=== PATIENT | male | born 1980 | race Hispanic/Latino ===

== ENCOUNTER 2020-11-26 21:45 | Emergency (ER) | payer SELFPAY ==
--- OUTSIDE RECORDS SUMMARY | 2020-11-26 21:47 | XMS REPORT | Continuity of Care Document ---
:1980 Author Organization [facility] t Address [address] [place] [address] Care Team Providers Name Role Phone Angelina BUCIO, S Attending Clinician Problems This patient has no known problems. Allergies, Adverse Reactions, Alerts This patient has no known allergies or adverse reactions. Medications This patient has no known medications. Procedures This patient has no known procedures. Encounters Start End Encounter Admission Attending Care Care Encounter Source Date/Time Date/Time Type Type Clinicians Facility Department ID 2020-11-21 2020-11-22 Emergency [facility] [id number] 21:16:00 00:46:00 Leydi Soliman [id number] [place] [id number] [place] [id number] Results This patient has no known results.
[2020-11-26 23:11] LABS: Urine Blood Trace-intact (Negative); Urine Glucose Negative (Negative); Urine Protein Negative (Negative); Urine Specific Gravity 1.025 (1.005-1.030)
[2020-11-26 23:16] LABS: Absolute Lymphocytes (CBC) 4.5 K/uL (0.7-4.9); Basophils % 0.7 % (0-1.3); Hematocrit 43.8 % (39.6-49.0); Lymphocytes % 44.6 % (15.3-44.8); MPV 10.5 fL (7.6-11.3); Protime INR 1.02; RBC Red Blood Cell Count 4.82 M/uL (4.33-5.43)
[2020-11-26] MEDS ORDERED: DIPHENHYDRAMINE 50 MG/ML VIAL ONE (23:20)
[2020-11-26] MEDS ORDERED: NA CHLORIDE 0.9% 1,000 ML ONE (23:20)
[2020-11-26] MEDS ORDERED: METOCLOPRAMIDE 10 MG/2mL INJ ONE (23:20)
[2020-11-26 23:40] LABS: ALT/SGPT 56 U/L (12-78); AST/SGOT 27 U/L (15-37); Alkaline Phosphatase 66 U/L (45-117); BUN Blood Urea Nitrogen 16 mg/dL (7-18); Bicarbonate 26 mmol/L (21-32); Bilirubin Direct < 0.1 mg/dL (0-0.2); Bilirubin Total 0.3 mg/dL (0.2-1.0); Glucose Level 96 mg/dL (74-106); Magnesium 2.1 mg/dL (1.8-2.4); NT PRO-BNP 20 pg/mL (<125); Phosphorus 3.3 mg/dL (2.5-4.9); Potassium 3.6 mmol/L (3.5-5.1); Protein, Total 7.4 g/dL (6.4-8.2); Sodium Level 141 mmol/L (136-145); Troponin (Emerg Dept Use Only) < 0.02 ng/mL (0.0-0.045)
[2020-11-26 23:46] LABS: Barbiturates POSITIVE (NEGATIVE); Benzodiazepines NEGATIVE (NEGATIVE); Cocaine NEGATIVE (NEGATIVE); METHAMPHETAM NEGATIVE (NEGATIVE); Methadone NEGATIVE (NEGATIVE); Opiates NEGATIVE (NEGATIVE); Phencyclidine NEGATIVE (NEGATIVE); THC Cannibis NEGATIVE (NEGATIVE)
--- NOTE | 2020-11-27 02:10 | EDPHYS ---
Physician Documentation [facility] Name: Scott Anthony Age: 40 yrs Sex: Male : 1980 Arrival Date: 11/26/2020 Time: 21:49 Bed 15 Private MD: ED Physician Bentley Parry HPI: 11/27 00:04 This 40 yrs old Male presents to ER via Ambulatory with complaints of mh7 Headache, Dizziness, Numbness Of Face. 00:04 The patient complains of pain to the right side of head. The patient describes the mh7 headache as intermittent, throbbing, waxing and waning. Onset: The symptoms/episode began/occurred 3 week(s) ago. Associated signs and symptoms: Pertinent positives: dizziness, nausea, paresthesias, sinus congestion, Pertinent negatives: altered mental status, fever, malaise, neck stiffness, Photophobia rash, sinus tenderness, vision changes, vision loss, vomiting, weakness, vertigo. Severity of symptoms: At its worst the pain was moderate, 10 day(s) ago, in the emergency department the pain has improved, moderately. Headache History: The patient has had previous headaches and this one is similar to previous episodes. The symptoms are alleviated by nothing. the symptoms are aggravated by foods, stress. The patient has experienced similar episodes in the past, several times. Historical: - Allergies: 11/26 21:59 No Known Allergies; vg1 - Home Meds: 21:59 Enalapril Oral [Active]; vg1 - PMHx: 21:59 Hypertension; vg1 - Immunization history:: Adult Immunizations up to date. - Social history:: Smoking status: Patient denies any tobacco usage or history of. ROS: 11/27 00:04 Constitutional: Negative for fever, chills, and weight loss, Eyes: Negative for injury, mh7 pain, redness, and discharge, ENT: Negative for injury, pain, and discharge, Neck: Negative for injury, pain, and swelling, Cardiovascular: Negative for chest pain, palpitations, and edema, Respiratory: Negative for shortness of breath, cough, wheezing, and pleuritic chest pain. Back: Negative for injury and pain, : Negative for injury, bleeding, discharge, and swelling, MS/Extremity: Negative for injury and deformity, Skin: Negative for injury, rash, and discoloration, Psych: Negative for depression, anxiety, suicide ideation, homicidal ideation, and hallucinations, Allergy/Immunology: Negative for hives, rash, and allergies, Endocrine: Negative for neck swelling, polydipsia, polyuria, polyphagia, and marked weight changes, Hematologic/Lymphatic: Negative for swollen nodes, abnormal bleeding, and unusual bruising. Abdomen/GI: Negative for abdominal pain, vomiting, diarrhea, constipation, abdominal cramps, abdominal distension, anorexia, dysphagia, hematemesis, black/tarry stool, rectal pain, rectal bleeding, bowel incontinence, flatulence. Exam: 00:04 Constitutional: This is a well developed, well nourished patient who is awake, alert, mh7 and in no acute distress. Head/Face: Normocephalic, atraumatic. Eyes: Pupils equal round and reactive to light, extra-ocular motions intact. Lids and lashes normal. Conjunctiva and sclera are non-icteric and not injected. Cornea within normal limits. Periorbital areas with no swelling, redness, or edema. Neck: Trachea midline, no thyromegaly or masses palpated, and no cervical lymphadenopathy. Supple, full range of motion without nuchal rigidity, or vertebral point tenderness. No Meningismus. Chest/axilla: Normal chest wall appearance and motion. Nontender with no deformity. No lesions are appreciated. Cardiovascular: Regular rate and rhythm with a normal S1 and S2. No gallops, murmurs, or rubs. Normal PMI, no JVD. No pulse deficits. Respiratory: Lungs have equal breath sounds bilaterally, clear to auscultation and percussion. No rales, rhonchi or wheezes noted. No increased work of breathing, no retractions or nasal flaring. Abdomen/GI: Soft, non-tender, with normal bowel sounds. No distension or tympany. No guarding or rebound. No evidence of tenderness throughout. Back: No spinal tenderness. No costovertebral tenderness. Full range of motion. Skin: Warm, dry with normal turgor. Normal color with no rashes, no lesions, and no evidence of cellulitis. MS/ Extremity: Pulses equal, no cyanosis. Neurovascular intact. Full, normal range of motion. Neuro: Awake and alert, GCS 15, oriented to person, place, time, and situation. Cranial nerves II-XII grossly intact. Motor strength 5/5 in all extremities. Sensory grossly intact. Cerebellar exam normal. Normal gait. Psych: Awake, alert, with orientation to person, place and time. Behavior, mood, and affect are within normal limits. 00:04 Head/face: Noted is tenderness, that is moderate, of the right side of scalp. Vital Signs: 11/26 21:56 BP 127 / 83; Pulse 74; Resp 16; Temp 97.7; Pulse Ox 100% ; Weight 97.52 kg; Height 5 vg1 ft. 8 in. (172.72 cm); Pain 10/10; 11/27 00:06 BP 125 / 80; Pulse 64; Resp 16; Pulse Ox 98% on R/A; jm8 01:11 BP 116 / 82; Pulse 74; Resp 16; Pulse Ox 100% on R/A; jm8 02:17 BP 122 / 87; Pulse 69; Resp 16; Pulse Ox 99% on R/A; jm8 11/26 21:56 Body Mass Index 32.69 (97.52 kg, 172.72 cm) vg1 Cora Coma Score: 02:06 Eye Response: spontaneous(4). Verbal Response: oriented(5). Motor Response: obeys mh7 commands(6). Total: 15. MDM: 02:06 Differential diagnosis: cluster headache, hypertensive headache, intracerebral mh7 hemorrhage, migraine, tension headache. Data reviewed: vital signs, nurses notes, old medical records, lab test result(s), cardiac enzymes, CBC, electrolytes, urinalysis, urine drug screen, EKG, radiologic studies, CT scan, plain films. Data interpreted: Pulse oximetry: on room air is 100 %. Interpretation: normal. Counseling: I had a detailed discussion with the patient and/or guardian regarding: the historical points, exam findings, and any diagnostic results supporting the discharge/admit diagnosis, lab results, radiology results, the need for outpatient follow up, to return to the emergency department if symptoms worsen or persist or if there are any questions or concerns that arise at home. Response to treatment: the patient's symptoms have resolved after treatment, the patient's blood pressure is in an acceptable range, mental status has returned to baseline, the patient no longer shows bradycardia, the patient is not short of breath, the patient is not tachycardic, the patient's pain is gone, the patient's temperature has normalized. 02:09 Patient medically screened. [facility] 11/26 22:47 Order name: Basic Metabolic Panel [facility] 11/26 22:47 Order name: CBC with Diff [facility] 11/26 22:47 Order name: LFT's [facility] 11/26 22:47 Order name: Magnesium; Complete Time: 01:45 [facility] 11/26 22:47 Order name: NT PRO-BNP; Complete Time: 01:45 [facility] 11/26 22:47 Order name: PT-INR; Complete Time: :45 [facility] 11/26 22:47 Order name: Troponin (emerg Dept Use Only); Complete Time: 01:45 [facility] 11/26 22:47 Order name: TSH; Complete Time: :45 [facility] 11/26 22:47 Order name: UDS; Complete Time: :45 [facility] 11/26 22:47 Order name: Basic Metabolic Panel; Complete Time: 01:45 [facility] 11/26 22:47 Order name: CBC with Automated Diff; Complete Time: 01:45 [facility] 11/26 22:48 Order name: Phosphorus; Complete Time: 01:45 [facility] 11/26 22:48 Order name: Liver (Hepatic) Function; Complete Time: 01:45 [facility] 11/26 23:10 Order name: Urine Dipstick-Ancillary; Complete Time: 01:45 [facility] 11/26 22:47 Order name: XRAY Chest (1 view) [facility] 11/26 22:47 Order name: EKG; Complete Time: 22:48 [facility] 11/26 22:47 Order name: Cardiac monitoring; Complete Time: 23:32 [facility] 11/26 22:47 Order name: EKG - Nurse/Tech; Complete Time: 23:32 [facility] 11/26 22:47 Order name: IV Saline Lock; Complete Time: 22:59 [facility] 11/26 22:47 Order name: Labs collected and sent; Complete Time: 22:59 [facility] 11/26 22:47 Order name: O2 Per Protocol; Complete Time: 22:48 [facility] 11/26 22:47 Order name: O2 Sat Monitoring; Complete Time: 22:48 [facility] 11/26 22:47 Order name: Urine Dipstick-Ancillary (obtain specimen); Complete Time: 23:16 [facility] 11/26 22:49 Order name: CT Head Brain wo Cont [facility] 11/26 23:41 Order name: T4 Free; Complete Time: 01:45 EDMS Administered Medications: 11/26 23:02 Drug: NS 0.9% 1000 ml Route: IV; Rate: 1000 ml; Site: right antecubital; [facility] 11/27 01:05 Follow up: IV Status: Completed infusion [facility] 11/26 23:02 Drug: Reglan (metoCLOPramide) 10 mg Route: IVP; Site: right antecubital; [facility] 11/27 01:04 Follow up: Response: No adverse reaction [facility] 11/26 23:03 Drug: Benadryl (diphenhydrAMINE) 50 mg Route: IVP; Site: right antecubital; [facility] 11/27 01:04 Follow up: Response: No adverse reaction [facility] Disposition: 11/27/20 02:09 Discharged to Home. Impression: Headache, Dizziness and giddiness, Paresthesia. - Condition is Stable. - Discharge Instructions: General Headache Without Cause, Ncbu-ot-[id number], Paresthesia, Yhdg-mv-[id number], Dizziness, Figl-ot-Bcun. - Medication Reconciliation Form, Thank You Letter, Antibiotic Education, Prescription Opioid Use form. - Follow up: Private Physician; When: 1 - 2 days; Reason: Worsening of condition, Recheck today's complaints, Continuance of care, Re-evaluation by your physician. - Problem is an ongoing problem. - Symptoms have improved. Signatures: Dispatcher [employer] EDMS Tasia Hoover RN RN vg1 Bentley Parry MD MD mh7 Gregory Zamora RN RN jm8 Corrections: (The following items were deleted from the chart) 02:18 02:09 11/27/2020 02:09 Discharged to Home. Impression: Headache; Dizziness and jm8 giddiness; Paresthesia. Condition is Stable. Forms are Medication Reconciliation Form, Thank You Letter, Antibiotic Education, Prescription Opioid Use. Follow up: Private Physician; When: 1 - 2 days; Reason: Worsening of condition, Recheck today's complaints, Continuance of care, Re-evaluation by your physician. Problem is an ongoing problem. Symptoms have improved. 7
--- NOTE | 2020-11-27 02:10 | ER ---
Nurse's Notes [facility] Name: Scott Anthony Age: 40 yrs Sex: Male : 1980 Arrival Date: 11/26/2020 Time: 21:49 Bed 15 Private MD: Diagnosis: Headache;Dizziness and giddiness;Paresthesia Presentation: 11/26 21:56 Chief complaint: Patient states: For the past 2-3 weeks pt has been dealing with a h/a vg1 and no pain medication is helping; Pt states Arm numbness and facial numbness, and states head feels like its tingling. Coronavirus screen: Client denies travel out of the [place] in the last 14 days. Ebola Screen: Patient negative for fever greater than or equal to 101.5 degrees Fahrenheit, and additional compatible Ebola Virus Disease symptoms. Initial Sepsis Screen: Does the patient meet any 2 criteria? No. Patient's initial sepsis screen is negative. Does the patient have a suspected source of infection? No. Patient's initial sepsis screen is negative. Risk Assessment: Do you want to hurt yourself or someone else? Patient reports no desire to harm self or others. Onset of symptoms was November 12, 2020. 21:56 Method Of Arrival: Ambulatory vg1 21:56 Acuity: CHERELLE 3 vg1 Triage Assessment: 21:59 General: Appears in no apparent distress. uncomfortable, Behavior is calm, cooperative. vg1 Pain: Complains of pain in head Pain currently is 10 out of 10 on a pain scale. Pain began About 2-3 weeks ago Also complains of nausea. Neuro: Level of Consciousness is awake, alert, obeys commands, Oriented to person, place, time, situation, Reports blurred vision headache. 23:15 Headache History: Denies prior headaches. jm8 Historical: - Allergies: 21:59 No Known Allergies; vg1 - Home Meds: 21:59 Enalapril Oral [Active]; vg1 - PMHx: 21:59 Hypertension; vg1 - Immunization history:: Adult Immunizations up to date. - Social history:: Smoking status: Patient denies any tobacco usage or history of. Screenin:01 VAN Screening: Arm Drift: Patient shows no arm weakness. vg1 23:15 Abuse screen: Denies threats or abuse. Denies injuries from another. Nutritional jm8 screening: No deficits noted. Tuberculosis screening: No symptoms or risk factors identified. Fall Risk IV access (20 points). Assessment: 23:13 General: Appears in no apparent distress. comfortable, Behavior is calm, cooperative, jm8 appropriate for age. Pain: Complains of pain in head Pain currently is 10 out of 10 on a pain scale. Quality of pain is described as aching. Neuro: No deficits noted. Level of Consciousness is awake, alert, obeys commands, Oriented to person, place, time. Neuro: Reports dizziness. Cardiovascular: No deficits noted. Respiratory: No deficits noted. Airway is patent Trachea midline Respiratory effort is even, unlabored, Respiratory pattern is regular. GI: No deficits noted. No signs and/or symptoms were reported involving the gastrointestinal system. GI: Reports nausea. : No deficits noted. No signs and/or symptoms were reported regarding the genitourinary system. EENT: No deficits noted. No signs and/or symptoms were reported regarding the EENT system. Derm: No deficits noted. No signs and/or symptoms reported regarding the dermatologic system. Musculoskeletal: No deficits noted. No signs and/or symptoms reported regarding the musculoskeletal system. 11/27 00:45 Reassessment: Patient appears in no apparent distress at this time. No changes from jm8 previously documented assessment. Patient and/or family updated on plan of care and expected duration. Pain level reassessed. Patient is alert, oriented x 3, equal unlabored respirations, skin warm/dry/pink. Patient states feeling better. Patient states symptoms have improved. Vital Signs: 11/26 21:56 BP 127 / 83; Pulse 74; Resp 16; Temp 97.7; Pulse Ox 100% ; Weight 97.52 kg; Height 5 vg1 ft. 8 in. (172.72 cm); Pain 10/10; 11/27 00:06 BP 125 / 80; Pulse 64; Resp 16; Pulse Ox 98% on R/A; jm8 01:11 BP 116 / 82; Pulse 74; Resp 16; Pulse Ox 100% on R/A; jm8 02:17 BP 122 / 87; Pulse 69; Resp 16; Pulse Ox 99% on R/A; jm8 11/26 21:56 Body Mass Index 32.69 (97.52 kg, 172.72 cm) vg1 Cora Coma Score: 02:06 Eye Response: spontaneous(4). Verbal Response: oriented(5). Motor Response: obeys [facility] commands(6). Total: 15. ED Course: 11/26 21:49 Patient arrived in ED. mr 21:58 Triage completed. vg1 21:59 Arm band placed on. vg1 22:21 Bentley Parry MD is Attending Physician. 7 23:15 Patient has correct armband on for positive identification. Bed in low position. Call [facility] light in reach. Side rails up X2. Adult w/ patient. 23:23 CT Head Brain wo Cont In Process Unspecified. EDMS 23:33 XRAY Chest (1 view) In Process Unspecified. EDTN 11/27 02:17 No provider procedures requiring assistance completed. IV discontinued, intact, 8 bleeding controlled. Administered Medications: 11/26 23:02 Drug: NS 0.9% 1000 ml Route: IV; Rate: 1000 ml; Site: right antecubital; [facility] 11/27 01:05 Follow up: IV Status: Completed infusion [facility] 11/26 23:02 Drug: Reglan (metoCLOPramide) 10 mg Route: IVP; Site: right antecubital; [facility] 11/27 01:04 Follow up: Response: No adverse reaction [facility] 11/26 23:03 Drug: Benadryl (diphenhydrAMINE) 50 mg Route: IVP; Site: right antecubital; [facility] 11/27 01:04 Follow up: Response: No adverse reaction [facility] Outcome: 02:09 Dis[address] ordered by . [facility] 02:17 Discharged to home ambulatory, with family. [facility] 02:17 Condition: good 02:17 Discharge instructions given to patient, family, Instructed on discharge instructions, follow up and referral plans. Demonstrated understanding of instructions, follow-up care. 02:18 Patient left the ED. jm8 Signatures: Dispatcher [employer] [facility] AlexanderChristina mr HooverTasia, RN RN 1 Bentley Parry MD MD 7 Gregory Zamora, RN RN jm8 Corrections: (The following items were deleted from the chart) 02:00 01:11 BP 157 / 92; Pulse 84bpm; Resp 16bpm; Pulse Ox 97% RA; Clemente Clemente
[2020-11-27 02:23] VITALS: TEMP 97.7
[2020-11-27 02:28] VITALS: BP 122/87; O2SAT 99
--- NOTE | 2020-11-27 11:02 | RAD REPORT ---
EXAM DESCRIPTION: RAD - Chest Single View - 11/26/2020 11:33 pm CLINICAL HISTORY: dizziness Chest pain. COMPARISON: Chest Single View dated 12/26/2016; CHEST SINGLE VIEW dated 11/26/2014; CHEST PA AND LAT 2 VIEW dated 08/19/2013 FINDINGS: Portable technique limits examination quality. The lungs are grossly clear. The heart is normal in size. No displaced fractures. IMPRESSION: No acute intrathoracic process suspected.
--- NOTE | 2020-11-28 19:39 | RAD REPORT ---
EXAM DESCRIPTION: Head Brain Wo Cont. RadLex: CT HEAD WITHOUT IV CONTRAST CLINICAL HISTORY: Headache;Dizziness. TECHNIQUE: Axial, coronal, and sagittal images through the brain were performed in the absence of in travenous contrast. This exam was performed according to our departmental dose-optimization program w hich includes use of Automated Exposure Control, adjustment of the mA and/or kV according to patient size and/or use of iterative reconstruction technique. COMPARISON: None. FINDINGS: The brain parenchyma appears unremarkable. There is no intra-axial or extra-axial bleed se en. There is no mass or mass effect. The ventricles are normal in size shape and configuration. The o rbital contents appear unremarkable. The visualized paranasal sinuses and mastoid air cells are patent. No fracture is identified. IMPRESSION: No acute intracranial abnormality identified. Electronically signed by: Casie Contreras MD 11/26/2020 11:30 PM CDT Due to temporary technical issues with the PACS/Fluency reporting system, reports are being signed by the in house radiologists without review as a courtesy to insure prompt reporting. The interpreting radiologist is fully responsible for the content of the report.
== END 2020-11-27 02:18 | disposition home or self-care (01) ==
LOC: ER 21:45
DX: R51.9 Headache, unspecified (principal); R42 Dizziness and giddiness; R20.2 Paresthesia of skin; I10 Essential (primary) hypertension
CPT/HCPCS: 36415; 70450; 71045; 80048; 80076; 80307; 81003; 83735; 83880; 84100; 84439; 84443; 84484; 85025; 85610; 93005; 96361; 96374; 96375; 99283; J1200; J2765; J7030